=== PATIENT | female | born 1935 | race Caucasian/White ===

== ENCOUNTER → 2018-06-08 | Outpatient (CLI) | payer MEDICARE ==
--- NOTE | 2018-06-08 13:46 | CT ---
EXAMINATION TYPE: CT chest wo con DATE OF EXAM: 06/08/2018 COMPARISON: None HISTORY: Interstitial lung disease. Difficulty breathing. CT DLP: 181 mGycm High-resolution noncontrast CT of the chest was performed with the patient in the prone and supine po sitions. Lung and mediastinal window settings are submitted. There is moderate subpleural fibrosis noted throughout both lung zapata with the greatest involvement of the upper lobes as well as the right middle lobe and to a lesser extent the lower lobes. There is no evidence for focal consolidation. No evidence for bronchiectasis. Moderate upper lobe emphysemato us changes noted. Pleural-based density right lower lobe measures 1.1 cm. Moderately large fixed hiatal hernia. IMPRESSION: 1. Moderate subpleural fibrosis. 2. Moderate upper lobe emphysematous change. 3. Pleural-based nodular density right lower lobe is nonspecific. Follow-up study is advised in appro ximately 4-6 months.
== END ==
LOC: RADCTMAIN 12:56
PROVIDERS: ATTEND Internal Medicine Critical Care Medicine
DX: J94.1 Fibrothorax (principal); J43.9 Emphysema, unspecified; R91.8 Other nonspecific abnormal finding of lung field
CPT/HCPCS: 71250